=== PATIENT | female | born 1980 | race Two or more races ===

== ENCOUNTER 2020-06-06 14:34 | Emergency (ER) | payer BC ==
[~2020-06-06] VITALS: Ht 160 cm; Wt 114.8 kg
--- NOTE | 2020-06-06 15:04 | NUR ---
URINE COLLECTED/WALKED TO LAB. WARM BLANKET PROVIDED, CALL LIGHT WITHIN REACH.
[2020-06-06 15:23] LABS: MICROSCOPIC AUTO
[2020-06-06 15:44] LABS: BASOPHILS # (AUTO) 0.04 x10^3/uL (0-0.1); BASOPHILS % (AUTO) 1 % (0-1); EOSINOPHILS # (AUTO) 0.08 x10^3/uL (0-0.4); EOSINOPHILS % (AUTO) 1 % (1-7); LYMPHOCYTES # (AUTO) 1.21 x10^3/uL (1-3.4); LYMPHOCYTES % (AUTO) 16 % (22-44); MD NO; MEAN CORPUSCULAR HEMOGLOBIN 23.7 pg (27.0-34.8); MEAN CORPUSCULAR HGB CONC 30.7 g/dL (32.4-35.8); MEAN PLATELET VOLUME 8.4 fL (7.4-10.4); MONOCYTES # (AUTO) 0.44 x10^3/uL (0.2-0.8); MONOCYTES % (AUTO) 6 % (2-9); NEUTROPHILS % (AUTO) 77 % (42-75); PLATELET COUNT 334 x10^3/uL (130-400); RED CELL DISTRIBUTION WIDTH 15.5 % (9.6-15.2)
[2020-06-06 15:49] LABS: CHLORIDE 108 mmol/L (98-107)
[2020-06-06 15:55] LABS: ALANINE AMINOTRANSFERASE 18 U/L (12-78); ALBUMIN 3.6 g/dL (3.4-5.0); ANION GAP 6 mmol/L (5-15); CALCIUM 8.3 mg/dL (8.5-10.1)
[2020-06-06 16:13] LABS: ALKALINE PHOSPHATASE 88 U/L (45-117); BILIRUBIN,TOTAL 0.2 mg/dL (0.2-1.0); TOTAL PROTEIN 7.5 g/dL (6.4-8.2)
--- NOTE | 2020-06-06 16:40 | NUR ---
ALL RESULTS BACK, PT FOR RECHECK. IN TO SEE PT.
[2020-06-06 17:17] VITALS: BP 126/64
== END 2020-06-06 17:20 | disposition home or self-care (01) ==
LOC: ED 17:05
DX: N30.00 Acute cystitis without hematuria (principal); K59.00 Constipation, unspecified; R10.12 Left upper quadrant pain; R11.0 Nausea; Z87.891 Personal history of nicotine dependence
CPT/HCPCS: 36415; 74021; 80053; 81001; 83690; 84703; 85025; 87086; 93005; 99285

== ENCOUNTER 2020-09-13 09:22 | Emergency (ER) | payer BC ==
[~2020-09-13] VITALS: Ht 160 cm; Wt 115.8 kg
[2020-09-13 10:19] LABS: BASOPHILS % (AUTO) 1 % (0-1); EOSINOPHILS % (AUTO) 1 % (1-7); LYMPHOCYTES % (AUTO) 23 % (22-44); MEAN CORPUSCULAR HEMOGLOBIN 24.4 pg (27.0-34.8); MEAN CORPUSCULAR HGB CONC 31.6 g/dL (32.4-35.8); MEAN PLATELET VOLUME 8.2 fL (7.4-10.4); MONOCYTES % (AUTO) 9 % (2-9); NEUTROPHILS % (AUTO) 66 % (42-75); PLATELET COUNT 305 x10^3/uL (130-400); RED BLOOD COUNT 4.11 x10^6/uL (3.82-5.3); RED CELL DISTRIBUTION WIDTH 16.4 % (9.6-15.2)
[2020-09-13 10:20] LABS: MD NO
[2020-09-13 10:28] LABS: ANION GAP 7 mmol/L (5-15); CALCIUM 8.5 mg/dL (8.5-10.1); CHLORIDE 110 mmol/L (98-107); CREATININE 0.74 mg/dL (0.55-1.02)
[2020-09-13] MEDS ORDERED: ACETAMINOPHEN 500 MG TABLET PO ONE (10:30)
[2020-09-13] MEDS ORDERED: ACETAMINOPHEN 500 MG TABLET ONE (10:38)
[2020-09-13 10:43] VITALS: BP 128/64
--- NOTE | 2020-09-13 10:44 | NUR ---
TYLENOL GIVEN PER ERP ORDER FOR INTERMITTENT BLE PAIN RATED 2-8/10. PT TOOK IBUPROFEN AT HOME. 2ND WARM BLANKET PROVIDED, CALL LIGHT WITHIN REACH.
--- NOTE | 2020-09-13 10:48 | NUR ---
LAB RESULTS BACK, PT FOR RECHECK.
== END 2020-09-13 11:22 | disposition home or self-care (01) ==
LOC: ED 09:49
DX: M79.662 Pain in left lower leg (principal); M79.661 Pain in right lower leg; E03.9 Hypothyroidism, unspecified; J45.909 Unspecified asthma, uncomplicated
CPT/HCPCS: 36415; 80048; 83735; 84443; 85025; 99282; 99283

== ENCOUNTER 2021-04-27 20:44 | Emergency (ER) | payer BC ==
[~2021-04-27] VITALS: Ht 160 cm; Wt 121.4 kg
[2021-04-27 20:52] VITALS: BP 134/79
--- NOTE | 2021-04-27 21:00 | NUR ---
PT PRESENTS TO ED WITH LEFT JAW, SHOULDER AND LEG PAIN. PT STATES HER TEETH DO NOT HURT, JUST HER JAW. PT IN GOWN, RESTING ON GURNEY, ERP AT BEDSIDE
--- NOTE | 2021-04-27 21:24 | NUR ---
PT TO US
--- NOTE | 2021-04-27 21:45 | NUR ---
pt back from us
--- NOTE | 2021-04-27 22:00 | NUR ---
pt resting on gurney, denies needs at this time.
--- NOTE | 2021-04-27 23:00 | NUR ---
pt refused vitals
--- NOTE | 2021-04-27 23:18 | NUR ---
Patient given discharge instructions and they have confirmed that they understand the instructions. Patient ambulatory with steady gait.
== END 2021-04-27 23:21 | disposition home or self-care (01) ==
LOC: ED 21:00
DX: S76.112A Strain of left quadriceps muscle, fascia and tendon, initial encounter (principal); X58.XXXA Exposure to other specified factors, initial encounter; Y93.89 Activity, other specified; Y92.89 Other specified places as the place of occurrence of the external cause; Y99.8 Other external cause status
CPT/HCPCS: 71045; 93005; 99284